=== PATIENT | female | born 1980 | race Caucasian/White ===

== ENCOUNTER 2019-05-27 15:35 | Emergency (ER) | payer BC ==
--- OUTSIDE RECORDS SUMMARY | 2019-05-27 16:11 | XMS REPORT | Summary of Care ---
:1980 Author Organization [facility] Address [address] [place] [address] Care Team Providers Name Role Phone Rafa Sinclair Primary Care Provider Reason for Visit Reason Comments Sinus Problem sore throat and congestion times 4 days; woke up this am bilateral ears hurting right ear worse. Encounter Details Date Type Department Care Team Description [facility] , recurrence not specified (Primary Dx); Practice Sarah Capps MD Panic disorder [address] [place] [address] [place] [address] [phone] Allergies Active Allergy Reactions Severity Noted Date Comments Keflex Cardiac Reaction 12/24/2008 documented as of this encounter (statuses as of 04/28/2019) Medications Medication Sig Dispensed Refills Start Date End Date Status daily vitamin Oral Take 1 Tab 0 Active Tab by mouth DAILY. Acetaminophen Take by 0 Active (TYLENOL) 325 MG Oral mouth Cap NEEDED. ALPRAZolam (XANAX) Take 1 Tab 30 Tab 0 02/28/2019 Active 0.25 MG Oral by mouth TabIndications: Panic THREE TIMES disorder DAILY NEEDED (anxiety). Max Daily Amount: 3 Tabs. doxycycline Take 100 mg 14 Tab 0 04/28/2019 05/05/2019 Active (VIBRAMYCIN) 100 MG by mouth Oral TabIndications: TWICE DAILY Acute maxillary for 7 days. sinusitis, recurrence not specified Desvenlafaxine Take 25 mg 30 Tab 1 01/24/2019 04/28/2019 Discontinued Succinate ER 25 MG by mouth Oral TABLET SR 24 HR DAILY. documented as of this encounter (statuses as of 04/28/2019) Active Problems Problem Noted Date S/P gastric bypass 05/14/2016 Overview: S/p sugery 09/[address] [facility] [address] [place] Pre op weight 361 pounds and post op goal weight 150-200 lb Panic disorder 09/15/2011 Overview: As needed alprazolam 0.25 mg BMI 50.0-59.9, adult 01/07/2011 Overview: This patient's BMI has been calculated and is above average, and BMI management plan is completed. General patient education discussion including: weight loss link to reduction of risk factors for car diac and other diseases, importance of long-term maintenance treatment in weight loss and is managed by diet and exercise. Glucose intolerance (impaired glucose tolerance) 01/07/2011 documented as of this encounter (statuses as of 04/28/2019) Resolved Problems Problem Noted Date Resolved Date Obesity, unspecified 11/13/2009 05/14/2016 documented as of this encounter (statuses as of 04/28/2019) Immunizations Name Administration Dates Next Due Influenza (IM) Preservative Free 11/01/2018, 05/06/2009 TDAP Vaccine 03/22/2018 Toradol (30 mg) 07/13/2012 documented as of this encounter Social History Tobacco Use Types Packs/Day Years Used Date Never Smoker Smokeless Tobacco: Never Used Alcohol Use Drinks/Week oz/Week Comments No 0 Standard drinks or equivalent 0.0 Sex Assigned at Date Recorded Not on file Job Start Date Occupation Industry Not on file Not on file Not on file Travel History Travel Start Travel End No recent travel history available. documented as of this encounter Last Filed Vital Signs Vital Sign Reading Time Taken Comments Blood Pressure 128/60 04/28/2019 11:24 AM EDT Pulse 96 04/28/2019 11:24 AM EDT Temperature 37.4 04/28/2019 11:24 AM EDT C (99.3 F) Respiratory Rate - - Oxygen Saturation 99% 04/28/2019 11:24 AM EDT Inhaled Oxygen Concentration - - Weight 106.1 kg (234 lb) 04/28/2019 11:24 AM EDT Height 157.5 cm (5' 2") 04/28/2019 11:24 AM EDT Body Mass Index 42.8 04/28/2019 11:24 AM EDT documented in this encounter Patient Instructions Patient InstructionsSarah Ocampo MD - 04/28/2019 1:20 PM EDTGiven Keflex allergy, I will treat with doxy bid x 7 days. Stop sudafed and it can cause palpitations and anxiety; and start nasal saline spray as needed. Stay hydrated, rest Return if symptoms worsen. documented in this encounter Progress Notes Sarah Ocampo MD - 04/28/2019 1:20 PM EDT PATIENT: Kalina Veronica : 1980 DATE OF SERVICE: 04/28/2019 CHIEF COMPLAINT: Chief Complaint Patient presents with Sinus Problem sore throat and congestion times 4 days; woke up this am bilateral ears hurting right ear worse. Subjective HISTORY OF PRESENT ILLNESS: Kalina Veronica is a 38-y.o. female. Nursing Notes: Mannie Rodriguez LPN 04/28/2019 11:28 AM Signed Chief Complaint Patient presents with Sinus Problem sore throat and congestion times 4 days; woke up this am bilateral ears hurting right ear worse. Mannie Rodriguez LPN Here with upper respiratory infection, now ear and sinus pain She can take amoxicillin and Augmentin in past Has chest pain with keflex 10 yrs ao Sinus Problem The history is provided by the patient. No logistics account manager was used. This is a new problem. Thecurrent episode started in the past 7 days. The problem has been gradually worsening. The pain is moderate. The pain has been intermittent since onset. Associated symptoms include chills, congestion, ear pain, sinus pressure, sore throat, swollen glands, cough, facial tenderness, drainage and post nasal drip. Pertinent negatives include no sweats and no shortness of breath. She has tried drinking (ibuprofen, sudafed) for the symptoms. Past Medical History: Diagnosis Date ENVIRONMENTAL ALLERGIES Fatty liver Insomnia Migraine Obesity s/p gastric bypass PCOS (polycystic ovarian syndrome) Proteinuria Spondylosis, cervical 2012 CT Unspecified functional disorder of stomach History reviewed. No pertinent family history. Current Outpatient Medications Medication Sig Acetaminophen (TYLENOL) 325 MG Oral Cap Take by mouth NEEDED. ALPRAZolam (XANAX) 0.25 MG Oral Tab Take 1 Tab by mouth THREE TIMES DAILY NEEDED (anxiety). Max Daily Amount: 3 Tabs. daily vitamin Oral Tab Take 1 Tab by mouth DAILY. doxycycline (VIBRAMYCIN) 100 MG Oral Tab Take 100 mg by mouth TWICE DAILY for 7 days. No current facility-administered medications for this visit. Allergies Allergen Reactions Keflex Cardiac Reaction Social History Socioeconomic History Marital status: Single Spouse name: Not on file Number of children: Not on file Years of education: Not on file Highest education level: Not on file Occupational History Not on file Social Needs Financial resource strain: Not on file Food insecurity: Worry: Not on file Inability: Not on file Transportation needs: Medical: Not on file Non-medical: Not on file Tobacco Use Smoking status: Never Smoker Smokeless tobacco: Never Used Substance and Sexual Activity Alcohol use: No Alcohol/week: 0.0 standard drinks Drug use: No Sexual activity: Not on file Lifestyle Physical activity: Days per week: Not on file Minutes per session: Not on file Stress: Not on file Relationships Social connections: Talks on phone: Not on file Gets together: Not on file Attends scientology service: Not on file Active member of club or organization: Not on file Attends meetings of clubs or organizations: Not on file Relationship status: Not on file Intimate partner violence: Fear of current or ex partner: Not on file Emotionally abused: Not on file Physically abused: Not on file Forced sexual activity: Not on file Other Topics Concern Not on file Social History Narrative Not on file REVIEW OF SYSTEMS: Review of Systems Constitutional: Positive for chills. Negative for fever and malaise/fatigue. HENT: Positive for congestion, ear pain, sinus pressure, sinus pain and sore throat. Negative for hearing loss. Eyes: Negative for blurred vision. Respiratory: Positive for cough. Negative for hemoptysis, sputum production and shortness of breath. Cardiovascular: Negative for chest pain. Gastrointestinal: Positive for nausea. Negative for abdominal pain, diarrhea and vomiting. Objective PHYSICAL EXAM: VITALS: BP 128/60 (BP Location: Left arm, Patient Position: Sitting) | Pulse 96 | Temp 99.3 F(37.4 C) | Ht 5' 2" (1.575 m) | Wt 234 lb (106.1 kg) | SpO2 99% | BMI 42.80 kg/m Body mass index is 42.8 kg/m. Physical Exam Constitutional: Appearance: She is well-developed. HENT: Head: Normocephalic and atraumatic. Right Ear: Ear canal and external ear normal. A middle ear effusion is present. There is no impacted cerumen. No mastoid tenderness. Tympanic membrane is injected, scarred and retracted. Tympanic membrane is not perforated or erythematous. Tympanic membrane has decreased mobility. Left Ear: Ear canal and external ear normal. A middle ear effusion is present. There is no impacted cerumen. No mastoid tenderness. Tympanic membrane is scarred and retracted. Tympanic membrane is not injected, perforated or erythematous. Tympanic membrane has decreased mobility. Nose: Mucosal edema, congestion and rhinorrhea present. No nasal deformity. Mouth/Throat: Mouth: Mucous membranes are moist. Pharynx: No pharyngeal swelling, oropharyngeal exudate, posterior oropharyngeal erythema or uvulaswelling. Eyes: Conjunctiva/sclera: Conjunctivae normal. Pupils: Pupils are equal, round, and reactive to light. Neck: Musculoskeletal: Normal range of motion and neck supple. Thyroid: No thyromegaly. Cardiovascular: Rate and Rhythm: Normal rate and regular rhythm. Heart sounds: Normal heart sounds. Pulmonary: Effort: Pulmonary effort is normal. Breath sounds: Normal breath sounds. No wheezing or rales. Abdominal: General: Bowel sounds are normal. There is no distension. Palpations: Abdomen is soft. There is no mass. Tenderness: There is no tenderness. There is no guarding or rebound. Lymphadenopathy: Cervical: No cervical adenopathy. Skin: General: Skin is warm and dry. Neurological: Mental Status: She is alert and oriented to person, place, and time. Coordination: Coordination normal. Psychiatric: Behavior: Behavior normal. Thought Content: Thought content normal. Judgment: Judgment normal. ASSESSMENT / IMPRESSION: ICD-9-CM ICD-10-CM 1. Acute maxillary sinusitis, recurrence not specified 461.0 J01.00 doxycycline (VIBRAMYCIN) 100 MG Oral Tab 2. Panic disorder 300.01 F41.0 Plan Given Keflex allergy, I will treat with doxy bid x 7 days. Stop sudafed and it can cause palpitations and anxiety; and start nasal saline spray as needed. Stay hydrated, rest Return if symptoms worsen. Author: Sarah Ocampo MD 04/28/2019 11:56 documented in this encounter Plan of Treatment Date Type Specialty Care Team Description 05/03/2019 Orders Only Occupational Medicine 05/03/2019 Nurse/Clinical Support Internal Medicine Health Maintenance Due Date Last Done Comments PAP SMEAR 03/11/2016 03/11/2013 (Previously completed), 01/07/2011 (Previously completed), 12/17/2008 INFLUENZA VACCINE (#1) 2019 11/01/2018, 05/06/2009 DEPRESSION SCREENING 01/25/2020 01/24/2019 DIABETES SCREENING 01/25/2020 01/24/2019, 01/03/2019, 11/26/2014, Additional history exists HPV IMMUNIZATION SERIES Aged Out No longer eligible based on patient's age to complete this topic MENINGOCOCCAL VACCINE IMM Aged Out No longer eligible based on patient's age to complete this topic PNEUMOCOCCAL 0-64 YRS Aged Out No longer eligible based on patient's age to complete this topic documented as of this encounter Results Not on filedocumented in this encounter Visit Diagnoses Diagnosis Acute maxillary sinusitis, recurrence not specified - Primary Panic disorder Panic disorder without agoraphobia documented in this encounter Insurance Payer Benefit Plan / Subscriber ID Effective Dates Phone Address Type Group [facility] xxxxxxxxxxxx 2018-Present Blue Cross/Blue Shield Guarantor Name Account Type Relation to Date of Phone Billing Address Patient Kalina Veronica Personal/Family 1980 [address] (Home) [facility] [phone] [place], [place] (Work) [id number] documented as of this encounter
--- NOTE | 2019-05-27 16:20 | ED ---
Laceration/Wound HPI - HPI Summary HPI Summary: 38-year-old female presents with laceration to left index finger today. States she cut it with a knife. States she removed some skin with it. States area continues to bleed. Tetanus up-to-date. Denies a foreign body. Does have a history of iron deficiency. - History of Current Complaint Stated Complaint: LT INDEX FINGER INJ PER PT Time Seen by Provider: 05/27/19 15:51 Pain Intensity: 0 - Additional Pertinent History Primary Care Physician: LAZARO - Allergy/Home Medications Allergies/Adverse Reactions: Allergies Allergy/AdvReac Type Severity Reaction Status Date / Time cephalexin [From Keflex] Allergy Chest Pain Verified 05/27/19 16:11 PMH/Surg Hx/FS Hx/Imm Hx Endocrine/Hematology History: Reports: Hx Diabetes Denies: Hx Anticoagulant Therapy, Hx Systemic Lupus Erythematosus, Hx Thyroid Disease Cardiovascular History: Denies: Hx Congestive Heart Failure, Hx Hypertension, Hx Pacemaker/ICD Respiratory History: Reports: Hx Asthma - A CHILD, Hx Sleep Apnea Denies: Hx Chronic Obstructive Pulmonary Disease (COPD) GI History: Reports: Hx Gastroesophageal Reflux Disease - HX OF Comment Only: Other GI Disorders - GERD History: Reports: Other Problems/Disorders - PCOS Denies: Hx Dialysis, Hx Renal Disease Musculoskeletal History: Denies: Hx Rheumatoid Arthritis Sensory History: Denies: Hx Contacts or Glasses, Hx Hearing Aid Opthamlomology History: Denies: Hx Contacts or Glasses Neurological History: Reports: Hx Migraine Denies: Hx Dementia, Hx Seizures Psychiatric History: Reports: Hx Anxiety Denies: Hx Substance Abuse - Cancer History Hx Chemotherapy: No - Surgical History Surgery Procedure, Year, and Place: BMT Hx Anesthesia Reactions: No Infectious Disease History: No Infectious Disease History: Denies: Hx Hepatitis, Hx Human Immunodeficiency Virus (HIV), Traveled Outside the [place] in Last 30 Days - Family History Known Family History: Positive: Non-Contributory - Social History Alcohol Use: None Substance Use Type: Reports: None Smoking Status (MU): Never Smoked Tobacco Review of Systems Negative: Fever Negative: Chest Pain Negative: Shortness Of Breath Positive: Other - laceration index finger All Other Systems Reviewed And Are Negative: Yes Physical Exam Triage Information Reviewed: Yes Vital Signs On Initial Exam: Initial Vitals Temp Pulse Resp BP Pulse Ox 98.5 F 63 16 149/88 100 05/27/19 15:42 05/27/19 15:42 05/27/19 15:42 05/27/19 15:42 05/27/19 15:42 Vital Signs Reviewed: Yes Appearance: Positive: Well-Appearing Skin: Positive: Warm, Dry, Other - 1 1/2cm by 1/2cm skin avulsion on left index finger distal phalanx Head/Face: Positive: Normal Head/Face Inspection Eyes: Positive: Normal, Conjunctiva Clear ENT: Positive: Pharynx normal Respiratory/Lung Sounds: Positive: Clear to Auscultation, Breath Sounds Present Cardiovascular: Positive: Normal, RRR Musculoskeletal: Positive: Normal, Strength/ROM Intact - left index finger, Other - capillary refill<2 secs Neurological: Positive: Normal Psychiatric: Positive: Normal Procedures - Sedation Patient Received Moderate/Deep Sedation with Procedure: No - Laceration/Wound Repair 1 Location: Other - left index finger Description: Irregular Length, Depth and Shape: 1 1/2cm by 1/2cm Irrigated w/ Saline (ccs): 200 Closure: Skin Adhesive Sterile Dressing Applied?: Yes - xeroform and coband Diagnostics - Vital Signs Vital Signs Temp Pulse Resp BP Pulse Ox 05/27/19 15:42 98.5 F 63 16 149/88 100 - Laboratory Lab Statement: Any lab studies that have been ordered have been reviewed, and results considered in the medical decision making process. Laceration Repair Course/Dx - Course Course Of Treatment: 38-year-old female presents with laceration to left index finger today. States she cut it with a knife. States she removed some skin with it. States area continues to bleed. Tetanus up-to-date. Denies a foreign body. Does have a history of iron deficiency. On exam has one and a half centimeter by 1/2cm area of skin avulsion. placed glue on area after cleaning such. placed xeroform and coband. told to change daily. patient understand and agrees with plan. - Differential Dx Differental Diagnoses: Abrasion, Avulsion, Laceration - Clinical Impression Provider Diagnoses: Skin avulsion Discharge ED - Sign-Out/Discharge Documenting (check all that apply): Patient Departure - Discharge Plan Condition: Good Disposition: HOME Patient Education Materials: Skin Adhesive Care (ED) Referrals: Rafa Sinclair MD [Primary Care Provider] - Additional Instructions: Keep area in pressure dressing for 24 hours, change dressing daily Follow up with primary within 5 days Return to ED if develop any signs of infection such as fever, spreading redness , or pus formation or if bleed through pressure dressing or any new or worsening symptoms - Billing Disposition and Condition Condition: GOOD Disposition: Home
[2019-05-27 16:58] VITALS: BP 144/76
== END 2019-05-27 16:59 | disposition home or self-care (01) ==
LOC: ED 15:35
DX: S61.211A Laceration without foreign body of left index finger without damage to nail, initial encounter (principal); W26.0XXA Contact with knife, initial encounter; Y92.9 Unspecified place or not applicable; E11.9 Type 2 diabetes mellitus without complications; Z88.1 Allergy status to other antibiotic agents
CPT/HCPCS: 12001; 99281